=== PATIENT | female | born 1990 | race African-American/Black ===

== ENCOUNTER 2017-07-21 19:28 | Emergency (ER) | payer BC, OTHER, SELFPAY | END 2017-07-21 20:13 | disposition home or self-care (01) | LOC: SCSER 19:28 | DX: B34.9 Viral infection, unspecified (principal) | CPT/HCPCS: 99283 ==

== ENCOUNTER 2023-12-26 08:11 | Outpatient (CLI) | payer BC | END 2023-12-26 08:12 | disposition home or self-care (01) | LOC: ULT 08:11 | PROVIDERS: ATTEND Family Medicine | DX: R10.84 Generalized abdominal pain (principal) | CPT/HCPCS: 76700 ==